=== PATIENT | female | born 1965 | race Caucasian/White ===

== ENCOUNTER 2019-07-04 13:24 | Emergency (ER) | payer OTHER ==
[~2019-07-04] VITALS: Ht 167.6 cm; Wt 68.0 kg
[2019-07-04 14:30] VITALS: BP 168/98
[2019-07-04] MEDS ORDERED: CYCLOBENZAPRINE 10MG TABLET PO ONE (14:30)
[2019-07-04] MEDS ORDERED: KETOROLAC 60MG/2ML VIAL IM ONE (14:30)
== END 2019-07-04 15:32 | disposition home or self-care (01) ==
LOC: ER 13:24
DX: R07.89 Other chest pain (principal); Z88.5 Allergy status to narcotic agent; Z88.8 Allergy status to other drugs, medicaments and biological substances; V49.49XA Driver injured in collision with other motor vehicles in traffic accident, initial encounter; Y93.89 Activity, other specified; Y92.89 Other specified places as the place of occurrence of the external cause; Y99.8 Other external cause status
CPT/HCPCS: 93005; 96372; 99283; J1885